=== PATIENT | male | born 1940 | race Caucasian/White ===

== ENCOUNTER 2024-10-10 15:36 | Outpatient (CLI) | payer OTHER, SELFPAY ==
[2024-10-10 16:50] LABS: Chloride* 106 mmol/L (96-114); Potassium* 4.3 mmol/L (3.6-5.1); Sodium* 139 mmol/L (135-149)
[2024-10-10 16:53] LABS: Anion Gap 9 mEq/L (7-15); Blood Urea Nitrogen* 59 mg/dL (7-30); Calcium* 8.5 mg/dL (8.4-10.6); Carbon Dioxide* 24 mmol/L (20-32); Creatinine* 4.2 mg/dL (0.5-1.5); Estimated Glomerular Filt Rate 13 ml/min; Glucose* 91 mg/dL (60-115)
[2024-10-10 17:12] LABS: NT Pro B Type NatriureticPept* 18200 pg/mL (See Note)
== END 2024-10-10 15:37 | disposition home or self-care (01) ==
PROVIDERS: Visit Provider Family Medicine
DX: I50.22 Chronic systolic (congestive) heart failure (principal); I25.10 Atherosclerotic heart disease of native coronary artery without angina pectoris
CPT/HCPCS: 36415; 80048; 83880